=== PATIENT | female | born 1945 | race Caucasian/White ===

== ENCOUNTER 2020-04-26 13:52 | Emergency (ER) | payer MEDICARE, MEDICAID ==
[~2020-04-26] VITALS: Ht 167.6 cm; Wt 48.0 kg
--- NOTE | 2020-04-26 13:52 | NUR ---
MONIKA CALLAHAN from home-Pt reports near syncopal episode today while walking to the bathroom. Pt reports she became dizzy and assisted herself to the floor after that. Pt denies injury, c/o L wrist pain from fall sometime last week. Pt with own wrist brace on, CMS intact. Pt able to position self for comfort in [facility]. Continuous heart, oxygen and BP monitors applied, all safety measures observed. Addendum: 04/26/20 at 1434 by LISHA MONIKA CALLAHAN from home-Pt reports near syncopal episode today while walking to the bathroom. Pt reports she became dizzy and assisted herself to the floor after that. Pt denies injury, c/o R wrist pain from fall sometime last week. Pt with own wrist brace on, CMS intact. Pt able to position self for comfort in [facility]. Continuous heart, oxygen and BP monitors applied, all safety measures observed.
--- NOTE | 2020-04-26 14:18 | NUR ---
Pt ambulatory to bathroom and back to bed with SBA.
[2020-04-26 15:05] LABS: MEAN CORPUSCULAR HEMOGLOBIN 32.3 pg (27.0-34.8); MEAN CORPUSCULAR HGB CONC 33.3 g/dL (32.4-35.8); MEAN CORPUSCULAR VOLUME 96.9 fL (80-100); MEAN PLATELET VOLUME 6.8 fL (7.4-10.4); PLATELET COUNT 410 x10^3/uL (130-400); RED BLOOD COUNT 3.49 x10^6/uL (3.82-5.3); RED CELL DISTRIBUTION WIDTH 13.7 % (9.6-15.2)
--- NOTE | 2020-04-26 15:16 | NUR ---
Pt resting in bed watching TV, denies needs. POC discussed.
[2020-04-26 15:17] LABS: ALBUMIN 2.1 g/dL (3.4-5.0); ANION GAP 7 mmol/L (5-15); CALCIUM 7.8 mg/dL (8.5-10.1); CHLORIDE 119 mmol/L (98-107)
[2020-04-26 15:21] LABS: BASOPHILS # (AUTO) 0.01 x10^3/uL (0-0.1); BASOPHILS % (AUTO) 0 % (0-1); EOSINOPHILS # (AUTO) 0.04 x10^3/uL (0-0.4); EOSINOPHILS % (AUTO) 0 % (1-7); LYMPHOCYTES % (AUTO) 5 % (22-44); MD SCAN; MONOCYTES # (AUTO) 0.49 x10^3/uL (0.2-0.8); MONOCYTES % (AUTO) 3 % (2-9); NEUTROPHILS # (AUTO) 18.31 x10^3/uL (1.8-6.8); NEUTROPHILS % (AUTO) 92 % (42-75)
[2020-04-26 15:23] LABS: ALANINE AMINOTRANSFERASE 14 U/L (12-78); ALKALINE PHOSPHATASE 61 U/L (45-117); CREATININE 1.27 mg/dL (0.55-1.02); TOTAL PROTEIN 4.5 g/dL (6.4-8.2); TROPONIN I 0.025 ng/mL (0.000-0.045)
[2020-04-26 15:25] LABS: BILIRUBIN,TOTAL 0.4 mg/dL (0.2-1.0)
--- NOTE | 2020-04-26 17:03 | NUR ---
Encouraged pt to provide urine sample per order. Pt reports "He can kiss my ass." Dr. Wylie advised of this. Pt given water to drink to attempt to be able to provide urine sample, denies other needs.
[2020-04-26 18:39] LABS: MICROSCOPIC AUTO
[2020-04-26 18:44] VITALS: BP 146/77
--- NOTE | 2020-04-26 18:46 | NUR ---
Pt resting in bed, awaiting CT read.
--- NOTE | 2020-04-26 18:47 | NUR ---
REPORT FROM [place] ASSUMING CARE OF PT AT THIS TIME
--- NOTE | 2020-04-26 19:55 | NUR ---
TASK RN: Patient/FAMILY MEMBER given discharge instructions AFTER PT WENT TO RESTROOM WITH A SMOOTH AND STEADY GAIT. they have confirmed that they understand the instructions. Patient ambulatory with steady gait BUT TAKEN OUT OF ED VIA WHEELCHAIR PER REQUEST. DENIES ADDITIONAL NEEDS OR QUESTIONS AT THIS TIME. NAD, VSS. NO PT BELONGINGS LEFT IN ROOM AFTER DC.
== END 2020-04-26 20:03 | disposition home or self-care (01) ==
LOC: ED 15:58
DX: D72.829 Elevated white blood cell count, unspecified (principal); R07.89 Other chest pain; M25.531 Pain in right wrist; R06.02 Shortness of breath; R55 Syncope and collapse; R42 Dizziness and giddiness; I44.4 Left anterior fascicular block; J45.909 Unspecified asthma, uncomplicated
CPT/HCPCS: 36415; 70450; 71045; 80053; 81001; 84484; 85025; 87086; 93005; 99285

== ENCOUNTER 2021-04-06 15:24 | Emergency (ER) | payer MEDICARE, MEDICAID ==
[~2021-04-06] VITALS: Ht 170.2 cm; Wt 38.2 kg
--- NOTE | 2021-04-06 16:31 | NUR ---
PT C/O PAIN IN THE LEFT SIDE OF THE FACE AND EAR. PT ALSO C/O LEFT EYE DRAINAGE. PT HAS A ENT APPOINTMENT BUT CAN'T GET IN UNTIL APR. VS STABLE. FAMILY AT BEDSIDE. CALL LIGHT IN PLACE. WILL CONTINUE TO MONITOR. Addendum: 04/06/21 at 3 by LSTROMAN PT REPROTS SHE TAKES LOSARTIN AROUND 2300 AT NIGHT. BP NOW 153/80
--- NOTE | 2021-04-06 17:06 | NUR ---
PT RESTING IN ROOM. FAMILY AT BEDSIDE. CALL LIGHT IN PLACE. WILL CONTINUE TO MONITOR.
--- NOTE | 2021-04-06 17:58 | NUR ---
REPORT GIVEN TO LEONARDO HUGHES FOR BREAK
[2021-04-06 18:40] LABS: BASOPHILS % (AUTO) 1 % (0-1); EOSINOPHILS % (AUTO) 2 % (1-7); LYMPHOCYTES % (AUTO) 20 % (22-44); MEAN CORPUSCULAR HEMOGLOBIN 32.2 pg (27.0-34.8); MEAN CORPUSCULAR HGB CONC 33.7 g/dL (32.4-35.8); MEAN PLATELET VOLUME 7.1 fL (7.4-10.4); MONOCYTES % (AUTO) 8 % (2-9); NEUTROPHILS % (AUTO) 70 % (42-75); PLATELET COUNT 503 x10^3/uL (130-400); RED BLOOD COUNT 3.73 x10^6/uL (3.82-5.3); RED CELL DISTRIBUTION WIDTH 13.9 % (9.6-15.2)
[2021-04-06 18:50] LABS: ALBUMIN 2.6 g/dL (3.4-5.0); ANION GAP 4 mmol/L (5-15); CALCIUM 8.9 mg/dL (8.5-10.1); CHLORIDE 111 mmol/L (98-107); CREATININE 0.99 mg/dL (0.55-1.02)
--- NOTE | 2021-04-06 18:51 | NUR ---
report given to LEONARDO Garcia
--- NOTE | 2021-04-06 19:33 | NUR ---
PT TO CT
[2021-04-06] MEDS ORDERED: LABETALOL 5MG/ML, 20ML ONE (20:54)
--- NOTE | 2021-04-06 20:55 | NUR ---
DR. CLEMENTS AT BEDSIDE. NOTIFIED MD OF PT ELEVATED BP. SEE EMAR FOR NEW ORDERS
[2021-04-06] MEDS ORDERED: LABETALOL 5MG/ML, 20ML IVPush ONE (21:00)
[2021-04-06] MEDS ORDERED: OMNIPAQUE 350 MG/ML, 100ML BOTTLE ONE (22:00)
[2021-04-06 22:39] VITALS: BP 173/88
--- NOTE | 2021-04-06 22:39 | NUR ---
PER . PT OKAY TO D/C WITH BP 170/88. PT TOLD TO TAKE BP MEDS WHEN GETS HOME
== END 2021-04-06 22:42 | disposition home or self-care (01) ==
LOC: ED 19:16
DX: R68.84 Jaw pain (principal); H92.02 Otalgia, left ear
CPT/HCPCS: 36415; 70487; 80048; 82040; 85025; 93005; 96374; 99285; Q9967